=== PATIENT | male | born 1950 | race Caucasian/White ===

== ENCOUNTER 2022-06-23 21:42 | Inpatient (IN) | payer MEDICARE, MEDICAID ==
[~2022-06-23] VITALS: Ht 175.3 cm; Wt 89.2 kg
[2022-06-23] MEDS ORDERED: SODIUM CHLORIDE 0.9% 1,000 ML IV ONE (22:30)
[2022-06-23 22:52] LABS: BASOPHILS % 0.3 % (0.0-2.0); EOSINOPHILS % 1.7 % (0.0-5.0); HEMATOCRIT. 37.8 % (42.0-52.0); HEMOGLOBIN. 12.7 g/dL (14.0-18.0); LYMPHOCYTES % 12.1 % (20.0-50.0); MEAN CORPUSCULAR HEMOGLOBIN 33.5 pg (28.0-32.0); MEAN CORPUSCULAR VOLUME 99.8 fL (80.0-94.0); MEAN PLATELET VOLUME 7.8 fl (7.4-10.4); MONOCYTES % 11.1 % (2.0-8.0); NEUTROPHILS % 74.8 % (40.0-76.0); PLATELET 320 x1000/uL (130-400); RED BLOOD CELL COUNT 3.79 mill/uL (4.7-6.1); RED CELL DISTRIBUTION WIDTH 14.4 % (11.6-14.6)
[2022-06-23 23:00] LABS: CHLORIDE 101 mEq/L (98-107)
[2022-06-24] MEDS ORDERED: ONDANSETRON HCL 4MG/2ML INJ IV ONE (02:00)
[2022-06-24] MEDS ORDERED: LORAZEPAM 1MG TABLET PO ONE (02:00)
[2022-06-24] MEDS ORDERED: LOPERAMIDE HCL 2MG CAPSULE PO ONE (03:45)
[2022-06-24 06:50] LABS: CLARITY URINE CLEAR (CLEAR); COLOR URINE YELLOW (YELLOW); KETONES URINE NEGATIVE (NEGATIVE); LEUKOCYTE ESTERASE URINE NEGATIVE (NEGATIVE); NITRITE URINE NEGATIVE (NEGATIVE); OCCULT BLOOD URINE NEGATIVE (NEGATIVE); PH URINE 5.5 (4.5-8.0); PROTEIN URINE TRACE (NEGATIVE); SPECIFIC GRAVITY URINE 1.018 (1.005-1.030); UROBILINOGEN URINE 0.2 E.U./dL (0.2-1.0)
[2022-06-24] MEDS ORDERED: ONDANSETRON HCL 4MG/2ML INJ IV PRN (07:30)
[2022-06-24] MEDS ORDERED: ACETAMINOPHEN 325MG TABLET PO PRN (07:30)
[2022-06-24] MEDS ORDERED: TRAMADOL 50MG TABLET PO PRN (07:30)
[2022-06-24] MEDS ORDERED: GUAIFENESIN 200MG/10ML SUGAR FREE UDC PO PRN (07:30)
[2022-06-24] MEDS ORDERED: MAGNESIUM/ALUMINUM HYDROXIDE/SIMETHICONE 30ML UDC PO PRN (07:30)
[2022-06-24 09:00] VITALS: BP 107/70
[2022-06-24 09:30] VITALS: BP 127/66
[2022-06-24] MEDS: PANTOPRAZOLE SODIUM 40 MG/VIAL IV SCH (09:40)
[2022-06-24] MEDS: ENOXAPARIN 40MG/0.4ML SYR SUBCUT SCH (09:40)
[2022-06-24] MEDS ORDERED: DEXTROSE 50% WATER 50ML SYRINGE IV PRN (11:45)
[2022-06-24 12:00] VITALS: BP_SYST 107; BP_SYST 140; BP_DIAS 75; BP_DIAS 77
[2022-06-24] MEDS: SODIUM CHLORIDE 0.9% 1,000 ML IV SCH ×2 (12:21→20:50)
[2022-06-24] MEDS ORDERED: LOPERAMIDE HCL 2MG CAPSULE PO PRN (12:45)
[2022-06-24] MEDS: INSULIN LISPRO 100 UNITS/ML SUBCUT SCH ×3 (12:50→21:00)
[2022-06-24] MEDS: BLOOD SUGAR DIAGNOSTIC STRIP TEST SCH ×3 (12:54→21:00)
[2022-06-24] MEDS ORDERED: IPRATROPIUM/ALBUTEROL 0.5-3(2.5)MG/3ML NEB HHN PRN (13:00)
[2022-06-24] MEDS ORDERED: NALOXONE HCL 0.4MG/ML VIAL IV PRN (13:00)
[2022-06-24] MEDS: DIPHENHYDRAMINE HCL/ZINC ACET 28 GM CREAM TOP SCH (15:12)
[2022-06-24 16:00] VITALS: BP 126/78
[2022-06-24] MEDS: HYDROCODONE/APAP 7.5/325MG 1 TAB TABLET PO PRN ×2 (16:27→23:09)
[2022-06-24 20:00] VITALS: BP 147/78
[2022-06-25] VITALS: BP 147/78
[2022-06-25 00:02] VITALS: BP 146/84
[2022-06-25 04:00] VITALS: BP 133/74
[2022-06-25] MEDS: HYDROCODONE/APAP 7.5/325MG 1 TAB TABLET PO PRN ×2 (06:05→15:36)
[2022-06-25 06:52] LABS: BASOPHILS % 0.2 % (0.0-2.0); EOSINOPHILS % 4.9 % (0.0-5.0); HEMATOCRIT. 35.2 % (42.0-52.0); HEMOGLOBIN. 11.9 g/dL (14.0-18.0); LYMPHOCYTES % 22.4 % (20.0-50.0); MEAN CORPUSCULAR HEMOGLOBIN 34.1 pg (28.0-32.0); MEAN CORPUSCULAR VOLUME 100.5 fL (80.0-94.0); MEAN PLATELET VOLUME 7.9 fl (7.4-10.4); MONOCYTES % 13.7 % (2.0-8.0); NEUTROPHILS % 58.8 % (40.0-76.0); PLATELET 327 x1000/uL (130-400); RED CELL DISTRIBUTION WIDTH 14.1 % (11.6-14.6)
[2022-06-25 06:54] LABS: CHLORIDE 106 mEq/L (98-107)
[2022-06-25] MEDS: INSULIN LISPRO 100 UNITS/ML SUBCUT SCH ×2 (07:50→12:50)
[2022-06-25] MEDS: BLOOD SUGAR DIAGNOSTIC STRIP TEST SCH ×2 (07:58→13:12)
[2022-06-25 08:00] VITALS: BP_SYST 134; BP_SYST 153; BP_DIAS 87; BP_DIAS 93
[2022-06-25] MEDS: DIPHENHYDRAMINE HCL/ZINC ACET 28 GM CREAM TOP SCH (08:53)
[2022-06-25] MEDS: PANTOPRAZOLE SODIUM 40 MG/VIAL IV SCH (08:54)
[2022-06-25] MEDS: ENOXAPARIN 40MG/0.4ML SYR SUBCUT SCH (08:55)
[2022-06-25] MEDS: SODIUM CHLORIDE 0.9% 1,000 ML IV SCH (10:10)
[2022-06-25 12:00] VITALS: BP 134/93
[2022-06-25 15:40] VITALS: BP 139/93
== END 2022-06-25 16:10 | DRG 249 ==
LOC: ER 21:42 → 6EST 06-24 04:54 → ENRESERV 06-24 07:44
PROVIDERS: ADMIT Hospitalist; ATTEND Hospitalist
DX: K52.9 Noninfective gastroenteritis and colitis, unspecified (principal); E11.9 Type 2 diabetes mellitus without complications; E86.0 Dehydration; J44.9 Chronic obstructive pulmonary disease, unspecified; F32.A Depression, unspecified; I10 Essential (primary) hypertension; R79.89 Other specified abnormal findings of blood chemistry; G89.29 Other chronic pain; F17.210 Nicotine dependence, cigarettes, uncomplicated; Z82.49 Family history of ischemic heart disease and other diseases of the circulatory system; Z71.6 Tobacco abuse counseling
CPT/HCPCS: 36415; 71045; 74176; 80053; 81003; 82962; 83036; 83605; 85025; 93005; 99285; C1893; C9113; J1650; J2405; J7030

== ENCOUNTER 2022-08-21 09:31 | Inpatient (IN) | payer MEDICARE, MEDICAID ==
[~2022-08-21] VITALS: Ht 177.8 cm; Wt 90.7 kg
[2022-08-21] MEDS ORDERED: ONDANSETRON HCL 4MG/2ML INJ IV STA (10:13)
[2022-08-21] MEDS ORDERED: SODIUM CHLORIDE 0.9% 1,000 ML IV ONE ×2 (10:15→21:00)
[2022-08-21 12:13] LABS: BASOPHILS % 0.2 % (0.0-2.0); EOSINOPHILS % 2.3 % (0.0-5.0); HEMATOCRIT. 38.2 % (42.0-52.0); HEMOGLOBIN. 12.9 g/dL (14.0-18.0); LYMPHOCYTES % 7.9 % (20.0-50.0); MEAN CORPUSCULAR HEMOGLOBIN 33.7 pg (28.0-32.0); MEAN CORPUSCULAR VOLUME 100.2 fL (80.0-94.0); MONOCYTES % 7.8 % (2.0-8.0); NEUTROPHILS % 81.8 % (40.0-76.0); PLATELET 413 x1000/uL (130-400); RED BLOOD CELL COUNT 3.81 mill/uL (4.7-6.1); RED CELL DISTRIBUTION WIDTH 15.4 % (11.6-14.6)
[2022-08-21] MEDS ORDERED: IPRATROPIUM BROMIDE (0.02%) 0.5MG/2.5ML NEB HHN STA (12:31)
[2022-08-21] MEDS ORDERED: ALBUTEROL (0.083%) 2.5MG/3ML NEB HHN SCH (13:00)
[2022-08-21 13:14] LABS: CHLORIDE 95 mEq/L (98-107)
[2022-08-21 20:00] VITALS: BP 136/70
[2022-08-21] MEDS ORDERED: HYDROCODONE/ACETAMINOPHEN 5/325MG TABLET PO PRN (20:30)
[2022-08-21] MEDS ORDERED: IPRATROPIUM/ALBUTEROL 0.5-3(2.5)MG/3ML NEB HHN PRN (20:30)
[2022-08-21] MEDS ORDERED: MAGNESIUM/ALUMINUM HYDROXIDE/SIMETHICONE 30ML UDC PO PRN (20:30)
[2022-08-21] MEDS ORDERED: CLONIDINE 0.1MG TABLET PO PRN (20:30)
[2022-08-21] MEDS ORDERED: GUAIFENESIN 200MG/10ML SUGAR FREE UDC PO PRN (20:30)
[2022-08-21] MEDS ORDERED: ACETAMINOPHEN 325MG TABLET PO PRN ×2 (20:30)
[2022-08-21] MEDS ORDERED: ONDANSETRON HCL 4MG/2ML INJ IV PRN (20:30)
[2022-08-21] MEDS ORDERED: NALOXONE HCL 0.4MG/ML VIAL IV PRN (20:45)
[2022-08-21] MEDS ORDERED: DEXTROSE 50% WATER 50ML SYRINGE IV PRN (20:45)
[2022-08-21] MEDS: HYDROCODONE/ACETAMINOPHEN 7.5/325MG TABLET PO PRN (20:48)
[2022-08-21] MEDS: BLOOD SUGAR DIAGNOSTIC STRIP TEST SCH (21:00)
[2022-08-21] MEDS: INSULIN LISPRO 100 UNITS/ML SUBCUT SCH (21:00)
[2022-08-21] MEDS: ENOXAPARIN 40MG/0.4ML SYR SUBCUT SCH (21:48)
[2022-08-22] VITALS (7 sets, daily range): BP systolic 118–160; BP diastolic 60–95
[2022-08-22] MEDS: CALAMINE LOTION 120ML TOP SCH ×4 (05:43→22:00)
[2022-08-22 07:16] LABS: BASOPHILS % 0.1 % (0.0-2.0); EOSINOPHILS % 2.4 % (0.0-5.0); HEMATOCRIT. 30.8 % (42.0-52.0); HEMOGLOBIN. 10.5 g/dL (14.0-18.0); LYMPHOCYTES % 14.2 % (20.0-50.0); MEAN CORPUSCULAR HEMOGLOBIN 34.1 pg (28.0-32.0); MEAN PLATELET VOLUME 7.6 fl (7.4-10.4); MONOCYTES % 10.6 % (2.0-8.0); NEUTROPHILS % 72.7 % (40.0-76.0); PLATELET 341 x1000/uL (130-400); RED BLOOD CELL COUNT 3.08 mill/uL (4.7-6.1); RED CELL DISTRIBUTION WIDTH 15.4 % (11.6-14.6)
[2022-08-22] MEDS: INSULIN LISPRO 100 UNITS/ML SUBCUT SCH ×3 (07:50→21:00)
[2022-08-22] MEDS: BLOOD SUGAR DIAGNOSTIC STRIP TEST SCH ×3 (08:10→21:00)
[2022-08-22 08:29] LABS: VITAMIN B12 SERUM 624 pg/mL (211-911)
[2022-08-22] MEDS: IPRATROPIUM/ALBUTEROL 0.5-3(2.5)MG/3ML NEB HHN SCH ×3 (08:36→21:30)
[2022-08-22 09:23] LABS: CHLORIDE 101 mEq/L (98-107)
[2022-08-22] MEDS: PANTOPRAZOLE SODIUM 40 MG/VIAL IV SCH (09:24)
[2022-08-22] MEDS: HYDROCODONE/ACETAMINOPHEN 7.5/325MG TABLET PO PRN (09:25)
[2022-08-22] MEDS ORDERED: MORPHINE SULFATE 2 MG/ML CPJ (NOT FOR IM USE) IV PRN (09:30)
[2022-08-22 09:48] LABS: PHOSPHORUS 2.8 mg/dL (2.5-4.9); T4 FREE 1.04 ng/dL (0.76-1.46)
[2022-08-22 10:04] LABS: FOLIC ACID (FOLATE) SERUM > 20.00 ng/mL (>5.38)
[2022-08-22] MEDS: DIPHENHYDRAMINE 50MG/ML VIAL IV PRN (15:41)
[2022-08-22] MEDS ORDERED: MAGNESIUM 2 G PREMIX 50 ML IV NR (16:00)
[2022-08-22] MEDS ORDERED: PERMETHRIN 5% CREAM 60GM TOP NR (18:00)
[2022-08-22] MEDS ORDERED: DEXTROSE 50% WATER 50ML SYRINGE IV PRN (18:30)
[2022-08-22] MEDS: HYDROCODONE/ACETAMINOPHEN 5/325MG TABLET PO PRN (19:34)
[2022-08-22] MEDS: ENOXAPARIN 40MG/0.4ML SYR SUBCUT SCH (20:35)
[2022-08-23] VITALS: BP 156/72
[2022-08-23] MEDS: HYDROCODONE/ACETAMINOPHEN 5/325MG TABLET PO PRN ×3 (02:03→19:51)
[2022-08-23 04:00] VITALS: BP 144/86
[2022-08-23] MEDS: PANTOPRAZOLE SODIUM 40 MG/VIAL IV SCH (07:20)
[2022-08-23] MEDS: IPRATROPIUM/ALBUTEROL 0.5-3(2.5)MG/3ML NEB HHN SCH ×2 (07:30→21:29)
[2022-08-23] MEDS: INSULIN LISPRO 100 UNITS/ML SUBCUT SCH ×4 (07:50→20:36)
[2022-08-23 08:00] VITALS: BP 172/83
[2022-08-23] MEDS: BLOOD SUGAR DIAGNOSTIC STRIP TEST SCH ×4 (08:18→20:36)
[2022-08-23 12:00] VITALS: BP 163/73
[2022-08-23] MEDS: PANTOPRAZOLE 40MG DR TABLET PO SCH (12:37)
[2022-08-23] MEDS: CALAMINE LOTION 120ML TOP SCH ×3 (12:38→20:37)
[2022-08-23 16:00] VITALS: BP 134/74
[2022-08-23] MEDS: DIPHENHYDRAMINE 50MG/ML VIAL IV PRN (18:14)
[2022-08-23 20:00] VITALS: BP 130/80
[2022-08-23] MEDS ORDERED: PERMETHRIN 5% CREAM 60GM TOP NR (20:00)
[2022-08-23] MEDS: ENOXAPARIN 40MG/0.4ML SYR SUBCUT SCH (20:37)
[2022-08-23] MEDS ORDERED: LORAZEPAM 0.5MG TABLET PO NR (22:30)
[2022-08-24] VITALS: BP 130/80
[2022-08-24] MEDS: IPRATROPIUM/ALBUTEROL 0.5-3(2.5)MG/3ML NEB HHN SCH (01:07)
[2022-08-24 04:00] VITALS: BP 120/82
[2022-08-24] MEDS: BLOOD SUGAR DIAGNOSTIC STRIP TEST SCH ×2 (06:20→12:06)
[2022-08-24] MEDS: CALAMINE LOTION 120ML TOP SCH ×2 (06:20→14:30)
[2022-08-24] MEDS: PANTOPRAZOLE 40MG DR TABLET PO SCH (06:20)
[2022-08-24] MEDS: INSULIN LISPRO 100 UNITS/ML SUBCUT SCH ×2 (07:50→12:50)
[2022-08-24 08:00] VITALS: BP 103/60
[2022-08-24] MEDS: HYDROCODONE/ACETAMINOPHEN 5/325MG TABLET PO PRN (11:28)
[2022-08-24 12:00] VITALS: BP 113/80
[2022-08-24 15:08] LABS: BASOPHILS % 0.2 % (0.0-2.0); EOSINOPHILS % 3.5 % (0.0-5.0); HEMATOCRIT. 34.2 % (42.0-52.0); HEMOGLOBIN. 11.6 g/dL (14.0-18.0); LYMPHOCYTES % 19.2 % (20.0-50.0); MEAN CORPUSCULAR VOLUME 99.9 fL (80.0-94.0); MEAN PLATELET VOLUME 7.6 fl (7.4-10.4); MONOCYTES % 11.1 % (2.0-8.0); PLATELET 359 x1000/uL (130-400); RED BLOOD CELL COUNT 3.43 mill/uL (4.7-6.1); RED CELL DISTRIBUTION WIDTH 15.2 % (11.6-14.6)
[2022-08-24] MEDS ORDERED: LORAZEPAM 0.5MG TABLET PO NR (16:00)
[2022-08-24 16:45] VITALS: BP 90/56
[2022-08-24 17:19] LABS: CHLORIDE 99 mEq/L (98-107)
== END 2022-08-24 17:45 | DRG 392 ==
LOC: ER 10:13 → 6EST 15:42 → EDBEDREQ 15:45 → EDBEDREQTM 15:45 → ENRESERV 16:16 → CANRESERV 16:16 → ENRESERV 16:51
PROVIDERS: ADMIT Internal Medicine; ATTEND Internal Medicine
DX: A08.4 Viral intestinal infection, unspecified (principal); J06.9 Acute upper respiratory infection, unspecified; E86.0 Dehydration; E11.9 Type 2 diabetes mellitus without complications; J44.9 Chronic obstructive pulmonary disease, unspecified; K21.9 Gastro-esophageal reflux disease without esophagitis; E78.00 Pure hypercholesterolemia, unspecified; E78.5 Hyperlipidemia, unspecified; D75.89 Other specified diseases of blood and blood-forming organs; F32.A Depression, unspecified; F41.9 Anxiety disorder, unspecified; D53.9 Nutritional anemia, unspecified; B86 Scabies; E80.6 Other disorders of bilirubin metabolism; Z87.891 Personal history of nicotine dependence; Z99.81 Dependence on supplemental oxygen; Z91.012 Allergy to eggs
CPT/HCPCS: 36415; 71045; 80048; 80053; 82607; 82746; 82962; 83036; 83735; 83880; 84100; 84145; 84439; 84443; 84484; 85025; 88305; 94640; 99285; C9113; J1200; J1650; J2405; J3475; J7030

== ENCOUNTER 2022-10-01 16:37 | Inpatient (IN) | payer MEDICARE, MEDICAID ==
[~2022-10-01] VITALS: Ht 167.6 cm; Wt 78.5 kg
[2022-10-01] MEDS ORDERED: METHYLPREDNISOLONE SOD SUCC 125 MG/2 ML VIAL IV STA (17:39)
[2022-10-01] MEDS ORDERED: ALBUTEROL (0.083%) 2.5MG/3ML NEB HHN STA (17:39)
[2022-10-01] MEDS ORDERED: IPRATROPIUM BROMIDE (0.02%) 0.5MG/2.5ML NEB HHN STA (17:39)
[2022-10-01] MEDS ORDERED: SODIUM CHLORIDE 0.9% 1000ML BAG (SEPSIS BOLUS) IV ONE (17:45)
[2022-10-01] MEDS ORDERED: VANCOMYCIN 1G PREMIX 200 ML IV ONE (17:45)
[2022-10-01] MEDS ORDERED: OSELTAMIVIR 75MG CAPSULE PO ONE (17:45)
[2022-10-01] MEDS ORDERED: PIPERACILLIN/TAZ 3.375G PREMIX 50 ML IV ONE (17:45)
[2022-10-01 18:13] LABS: CLARITY URINE CLEAR (CLEAR); COLOR URINE YELLOW (YELLOW); KETONES URINE NEGATIVE (NEGATIVE); LEUKOCYTE ESTERASE URINE NEGATIVE (NEGATIVE); NITRITE URINE NEGATIVE (NEGATIVE); OCCULT BLOOD URINE NEGATIVE (NEGATIVE); PH URINE 8.5 (4.5-8.0); PROTEIN URINE 2+ (NEGATIVE); SPECIFIC GRAVITY URINE 1.015 (1.005-1.030)
[2022-10-01 18:51] LABS: BASOPHILS % 0.4 % (0.0-2.0); EOSINOPHILS % 1.5 % (0.0-5.0); HEMATOCRIT. 32.4 % (42.0-52.0); HEMOGLOBIN. 10.7 g/dL (14.0-18.0); LYMPHOCYTES % 12.3 % (20.0-50.0); MEAN CORPUSCULAR HEMOGLOBIN 33.8 pg (28.0-32.0); MEAN CORPUSCULAR VOLUME 102.7 fL (80.0-94.0); MONOCYTES % 7.2 % (2.0-8.0); NEUTROPHILS % 78.6 % (40.0-76.0); PLATELET 465 x1000/uL (130-400); RED BLOOD CELL COUNT 3.16 mill/uL (4.7-6.1); RED CELL DISTRIBUTION WIDTH 15.1 % (11.6-14.6)
[2022-10-01 18:55] LABS: CHLORIDE 88 mEq/L (98-107)
[2022-10-01 19:05] LABS: PROTHROMBIN TIME 10.8 sec (9.6-11.0)
[2022-10-02] VITALS (8 sets, daily range): BP systolic 138–182; BP diastolic 71–94
[2022-10-02] MEDS ORDERED: QUETIAPINE FUMARATE 25MG TABLET PO NR (00:30)
[2022-10-02] MEDS ORDERED: DOCUSATE SODIUM 100MG CAPSULE PO PRN (07:45)
[2022-10-02] MEDS ORDERED: GUAIFENESIN 200MG/10ML SUGAR FREE UDC PO PRN (07:45)
[2022-10-02] MEDS ORDERED: MAGNESIUM/ALUMINUM HYDROXIDE/SIMETHICONE 30ML UDC PO PRN (07:45)
[2022-10-02] MEDS ORDERED: IPRATROPIUM/ALBUTEROL 0.5-3(2.5)MG/3ML NEB HHN SCH (07:45)
[2022-10-02] MEDS ORDERED: CLONIDINE 0.1MG TABLET PO PRN (07:45)
[2022-10-02] MEDS ORDERED: ONDANSETRON HCL 4MG/2ML INJ IV PRN (07:45)
[2022-10-02] MEDS ORDERED: ACETAMINOPHEN 325MG TABLET PO PRN (07:45)
[2022-10-02 08:23] LABS: BG BASE EXCESS 19.3 mmol/L (-2.0-2.0); BG CARBOXYHEMOGLOBIN 0.4 % (0.5-1.5); BG DEOXYHEMOGLOBIN 1.8 % (0.0-5.0); BG FRACTION INSPIRED OXYGEN 36; BG HCO3 ACT 47.8 mmol/L (22.0-26.0); BG METHEMOGLOBIN 0.2 % (0.0-1.5); BG OXYGEN SATURATION 98.2 % (92.0-98.5); BG OXYHEMOGLOBIN 97.6 % (94.0-97.0); BG PCO2 82.7 mmHg (35.0-45.0); BG PO2 110.3 mmHg (75.0-100.0); BG SAMPLE SITE LEFT RADIAL; BG TOTAL HEMOGLOBIN 10.3 g/dL (12.0-18.0); BG VENT MODE NASAL CANNULA
[2022-10-02] MEDS ORDERED: PIPERACILLIN/TAZ 3.375G PREMIX 50 ML IV SCH (09:00)
[2022-10-02] MEDS ORDERED: AZITHROMYCIN 500MG/250ML 250 ML IV SCH (09:00)
[2022-10-02] MEDS: METHYLPREDNISOLONE SOD SUCC 125 MG/2 ML VIAL IV SCH ×2 (09:48→18:53)
[2022-10-02] MEDS: ASPIRIN 81MG EC TABLET PO SCH (09:49)
[2022-10-02] MEDS: AMLODIPINE 10MG TABLET PO SCH (09:49)
[2022-10-02] MEDS: AZITHROMYCIN 500MG in DEXTROSE 5% WATER 250ML IV SCH (10:38)
[2022-10-02] MEDS: ENOXAPARIN 40MG/0.4ML SYR SUBCUT SCH (10:38)
[2022-10-02] MEDS ORDERED: NALOXONE HCL 0.4 MG/ML 1ML VIAL IV PRN (10:45)
[2022-10-02] MEDS: DIPHENHYDRAMINE 50MG/ML VIAL IV PRN (11:36)
[2022-10-02] MEDS ORDERED: IPRATROPIUM/ALBUTEROL 0.5-3(2.5)MG/3ML NEB HHN PRN (12:30)
[2022-10-02] MEDS: PIPERACILLIN/TAZOBACTAM 3.375G in DEXT 5% WATER 50ML IV SCH ×2 (13:08→21:26)
[2022-10-02] MEDS: HYDROCODONE/ACETAMINOPHEN 5/325MG TABLET PO PRN (13:09)
[2022-10-02] MEDS: IPRATROPIUM/ALBUTEROL 0.5-3(2.5)MG/3ML NEB HHN SCH ×2 (16:05→21:02)
[2022-10-02 17:52] LABS: BASOPHILS % 0.3 % (0.0-2.0); HEMATOCRIT. 30.9 % (42.0-52.0); HEMOGLOBIN. 10.2 g/dL (14.0-18.0); LYMPHOCYTES % 8.1 % (20.0-50.0); MEAN CORPUSCULAR HEMOGLOBIN 33.6 pg (28.0-32.0); MEAN CORPUSCULAR VOLUME 101.7 fL (80.0-94.0); MEAN PLATELET VOLUME 7.6 fl (7.4-10.4); MONOCYTES % 4.3 % (2.0-8.0); NEUTROPHILS % 87.3 % (40.0-76.0); PLATELET 417 x1000/uL (130-400); RED BLOOD CELL COUNT 3.04 mill/uL (4.7-6.1); RED CELL DISTRIBUTION WIDTH 15.7 % (11.6-14.6)
[2022-10-02 18:34] LABS: CHLORIDE 93 mEq/L (98-107)
[2022-10-02 18:38] LABS: CREATINE KINASE MB FRACTION 1.8 ng/mL (0.5-3.6)
[2022-10-02 18:50] LABS: HDL CHOLESTEROL 41 mg/dL (40-59); LDL CHOLESTEROL 111 mg/dL (5-100); T4 FREE 0.92 ng/dL (0.76-1.46)
[2022-10-02 21:18] LABS: BG BASE EXCESS 18.2 mmol/L (-2.0-2.0); BG CARBOXYHEMOGLOBIN 0.3 % (0.5-1.5); BG DEOXYHEMOGLOBIN 9.5 % (0.0-5.0); BG FRACTION INSPIRED OXYGEN 28; BG HCO3 ACT 45.1 mmol/L (22.0-26.0); BG METHEMOGLOBIN 0.1 % (0.0-1.5); BG OXYGEN SATURATION 90.5 % (92.0-98.5); BG OXYHEMOGLOBIN 90.1 % (94.0-97.0); BG PCO2 66.9 mmHg (35.0-45.0); BG PH 7.447 (7.350-7.450); BG PO2 56.8 mmHg (75.0-100.0); BG SAMPLE SITE RIGHT RADIAL; BG TOTAL HEMOGLOBIN 10.7 g/dL (12.0-18.0); BG VENT MODE NASAL CANNULA
[2022-10-02] MEDS: FAMOTIDINE 20MG TABLET PO SCH (21:26)
[2022-10-03] VITALS (11 sets, daily range): BP systolic 138–154; BP diastolic 65–79
[2022-10-03] MEDS: METHYLPREDNISOLONE SOD SUCC 125 MG/2 ML VIAL IV SCH ×5 (00:08→23:15)
[2022-10-03] MEDS: IPRATROPIUM/ALBUTEROL 0.5-3(2.5)MG/3ML NEB HHN SCH ×6 (00:29→21:05)
[2022-10-03] MEDS: ACETAMINOPHEN 325MG TABLET PO PRN (05:40)
[2022-10-03] MEDS: PIPERACILLIN/TAZOBACTAM 3.375G in DEXT 5% WATER 50ML IV SCH ×3 (05:48→21:02)
[2022-10-03 08:53] LABS: BG BASE EXCESS 13.1 mmol/L (-2.0-2.0); BG CARBOXYHEMOGLOBIN 0.1 % (0.5-1.5); BG DEOXYHEMOGLOBIN 10.4 % (0.0-5.0); BG FRACTION INSPIRED OXYGEN 28; BG HCO3 ACT 38.4 mmol/L (22.0-26.0); BG METHEMOGLOBIN 0.3 % (0.0-1.5); BG OXYGEN SATURATION 89.6 % (92.0-98.5); BG OXYHEMOGLOBIN 89.2 % (94.0-97.0); BG PH 7.478 (7.350-7.450); BG PO2 54.1 mmHg (75.0-100.0); BG SAMPLE SITE RIGHT RADIAL; BG TOTAL HEMOGLOBIN 10.3 g/dL (12.0-18.0); BG VENT MODE NASAL CANNULA
[2022-10-03] MEDS ORDERED: LIDOCAINE HCL 1% 10 MG/ML 10ML VIAL ONE ×2 (09:02→10:17)
[2022-10-03] MEDS: ASPIRIN 81MG EC TABLET PO SCH (09:13)
[2022-10-03] MEDS: BUSPIRONE HCL 5MG TABLET PO SCH ×2 (09:13→20:37)
[2022-10-03] MEDS: ENOXAPARIN 40MG/0.4ML SYR SUBCUT SCH (09:13)
[2022-10-03] MEDS: FLUOXETINE HCL 10 MG CAPSULE PO SCH (09:13)
[2022-10-03] MEDS: AMLODIPINE 10MG TABLET PO SCH (09:16)
[2022-10-03] MEDS: AZITHROMYCIN 500MG in DEXTROSE 5% WATER 250ML IV SCH (11:57)
[2022-10-03 16:14] LABS: HEMATOCRIT. 30.4 % (42.0-52.0); HEMOGLOBIN. 10.2 g/dL (14.0-18.0); MEAN CORPUSCULAR HEMOGLOBIN 33.7 pg (28.0-32.0); MEAN CORPUSCULAR VOLUME 100.8 fL (80.0-94.0); MEAN PLATELET VOLUME 7.1 fl (7.4-10.4); PLATELET 475 x1000/uL (130-400); RED BLOOD CELL COUNT 3.01 mill/uL (4.7-6.1); RED CELL DISTRIBUTION WIDTH 15.4 % (11.6-14.6)
[2022-10-03 16:26] LABS: CHLORIDE 92 mEq/L (98-107)
[2022-10-03 16:36] LABS: CREATINE KINASE 29 IU/L (39-308); CREATINE KINASE MB FRACTION 1.1 ng/mL (0.5-3.6)
[2022-10-03 17:40] LABS: PLATELET ESTIMATE INCREASED
[2022-10-03] MEDS: HYDROCODONE/ACETAMINOPHEN 5/325MG TABLET PO PRN (18:03)
[2022-10-03] MEDS: FAMOTIDINE 20MG TABLET PO SCH (20:37)
[2022-10-04] VITALS (11 sets, daily range): BP systolic 134–159; BP diastolic 60–89
[2022-10-04] MEDS: IPRATROPIUM/ALBUTEROL 0.5-3(2.5)MG/3ML NEB HHN SCH ×6 (00:30→21:14)
[2022-10-04] MEDS: METHYLPREDNISOLONE SOD SUCC 125 MG/2 ML VIAL IV SCH ×2 (05:05→12:10)
[2022-10-04] MEDS: PIPERACILLIN/TAZOBACTAM 3.375G in DEXT 5% WATER 50ML IV SCH ×3 (05:05→21:01)
[2022-10-04] MEDS: AZITHROMYCIN 500 MG TABLET PO SCH (09:00)
[2022-10-04] MEDS: ASPIRIN 81MG EC TABLET PO SCH (09:00)
[2022-10-04] MEDS: FLUOXETINE HCL 10 MG CAPSULE PO SCH (09:00)
[2022-10-04] MEDS: HYDROCODONE/ACETAMINOPHEN 5/325MG TABLET PO PRN ×2 (09:00→15:38)
[2022-10-04] MEDS: AMLODIPINE 10MG TABLET PO SCH (09:00)
[2022-10-04] MEDS: BUSPIRONE HCL 5MG TABLET PO SCH (09:00)
[2022-10-04] MEDS: ENOXAPARIN 40MG/0.4ML SYR SUBCUT SCH (09:01)
[2022-10-04] MEDS: DIPHENHYDRAMINE 50MG/ML VIAL IV PRN (20:57)
[2022-10-04] MEDS: BUSPIRONE HCL 10MG TABLET PO SCH (20:57)
[2022-10-04] MEDS: METHYLPREDNISOLONE SOD SUCC 40 MG/ML VIAL IV SCH (20:57)
[2022-10-04] MEDS: FAMOTIDINE 20MG TABLET PO SCH (20:57)
[2022-10-04] MEDS: ATORVASTATIN CALCIUM 40MG TABLET PO SCH (20:57)
[2022-10-04] MEDS ORDERED: HALOPERIDOL LACTATE 5MG/ML VIAL IM SCH (22:30)
[2022-10-05] VITALS (10 sets, daily range): BP systolic 97–155; BP diastolic 54–115
[2022-10-05] MEDS: IPRATROPIUM/ALBUTEROL 0.5-3(2.5)MG/3ML NEB HHN SCH ×7 (00:53→23:51)
[2022-10-05] MEDS: PIPERACILLIN/TAZOBACTAM 3.375G in DEXT 5% WATER 50ML IV SCH ×3 (05:11→22:22)
[2022-10-05] MEDS: DIPHENHYDRAMINE 50MG/ML VIAL IV PRN ×2 (05:12→20:10)
[2022-10-05] MEDS: BUSPIRONE HCL 10MG TABLET PO SCH ×2 (09:00→20:10)
[2022-10-05] MEDS: AZITHROMYCIN 500 MG TABLET PO SCH (09:00)
[2022-10-05] MEDS: ASPIRIN 81MG EC TABLET PO SCH (09:00)
[2022-10-05] MEDS: AMLODIPINE 10MG TABLET PO SCH (09:00)
[2022-10-05] MEDS: FLUOXETINE HCL 10 MG CAPSULE PO SCH (09:00)
[2022-10-05] MEDS: METHYLPREDNISOLONE SOD SUCC 40 MG/ML VIAL IV SCH ×2 (09:00→20:10)
[2022-10-05] MEDS: ENOXAPARIN 40MG/0.4ML SYR SUBCUT SCH (09:01)
[2022-10-05 09:14] LABS: BG BASE EXCESS 15.9 mmol/L (-2.0-2.0); BG CARBOXYHEMOGLOBIN 0.3 % (0.5-1.5); BG DEOXYHEMOGLOBIN 4.6 % (0.0-5.0); BG FRACTION INSPIRED OXYGEN 40; BG HCO3 ACT 43.1 mmol/L (22.0-26.0); BG METHEMOGLOBIN 0.3 % (0.0-1.5); BG OXYGEN SATURATION 95.4 % (92.0-98.5); BG OXYHEMOGLOBIN 94.8 % (94.0-97.0); BG PCO2 68.6 mmHg (35.0-45.0); BG PH 7.416 (7.350-7.450); BG PO2 81.9 mmHg (75.0-100.0); BG SAMPLE SITE RIGHT RADIAL; BG TOTAL HEMOGLOBIN 10.5 g/dL (12.0-18.0); BG VENT MODE NASAL CANNULA
[2022-10-05] MEDS: HYDROCODONE/ACETAMINOPHEN 5/325MG TABLET PO PRN ×2 (09:15→20:10)
[2022-10-05] MEDS: ATORVASTATIN CALCIUM 40MG TABLET PO SCH (20:10)
[2022-10-05] MEDS: FAMOTIDINE 20MG TABLET PO SCH (20:10)
[2022-10-06] VITALS (12 sets, daily range): BP systolic 116–165; BP diastolic 52–91
[2022-10-06] MEDS: IPRATROPIUM/ALBUTEROL 0.5-3(2.5)MG/3ML NEB HHN SCH ×5 (03:59→21:06)
[2022-10-06] MEDS: PIPERACILLIN/TAZOBACTAM 3.375G in DEXT 5% WATER 50ML IV SCH ×3 (06:02→20:26)
[2022-10-06] MEDS: AZITHROMYCIN 500 MG TABLET PO SCH (08:14)
[2022-10-06] MEDS: AMLODIPINE 10MG TABLET PO SCH (08:14)
[2022-10-06] MEDS: BUSPIRONE HCL 10MG TABLET PO SCH ×2 (08:14→20:25)
[2022-10-06] MEDS: ASPIRIN 81MG EC TABLET PO SCH (08:14)
[2022-10-06] MEDS: FLUOXETINE HCL 10 MG CAPSULE PO SCH (08:14)
[2022-10-06] MEDS: METHYLPREDNISOLONE SOD SUCC 40 MG/ML VIAL IV SCH ×2 (08:15→20:25)
[2022-10-06] MEDS: ENOXAPARIN 40MG/0.4ML SYR SUBCUT SCH (08:15)
[2022-10-06 08:58] LABS: HEMATOCRIT. 30.9 % (42.0-52.0); HEMOGLOBIN. 10.4 g/dL (14.0-18.0); MEAN CORPUSCULAR HEMOGLOBIN 34.1 pg (28.0-32.0); MEAN CORPUSCULAR VOLUME 101.3 fL (80.0-94.0); MEAN PLATELET VOLUME 7.3 fl (7.4-10.4); PLATELET 463 x1000/uL (130-400); RED BLOOD CELL COUNT 3.05 mill/uL (4.7-6.1); RED CELL DISTRIBUTION WIDTH 15.5 % (11.6-14.6)
[2022-10-06 09:20] LABS: CHLORIDE 98 mEq/L (98-107)
[2022-10-06] MEDS: ACETAMINOPHEN 325MG TABLET PO PRN (13:03)
[2022-10-06 17:37] LABS: PLATELET ESTIMATE INCREASED
[2022-10-06] MEDS: HYDROCODONE/ACETAMINOPHEN 5/325MG TABLET PO PRN (18:25)
[2022-10-06] MEDS: FAMOTIDINE 20MG TABLET PO SCH (20:25)
[2022-10-06] MEDS: ATORVASTATIN CALCIUM 40MG TABLET PO SCH (20:25)
[2022-10-07] VITALS (13 sets, daily range): BP systolic 117–159; BP diastolic 57–85
[2022-10-07] MEDS: IPRATROPIUM/ALBUTEROL 0.5-3(2.5)MG/3ML NEB HHN SCH ×6 (00:34→21:08)
[2022-10-07] MEDS: PIPERACILLIN/TAZOBACTAM 3.375G in DEXT 5% WATER 50ML IV SCH (05:14)
[2022-10-07] MEDS: METHYLPREDNISOLONE SOD SUCC 40 MG/ML VIAL IV SCH (08:35)
[2022-10-07] MEDS: FLUOXETINE HCL 20MG CAPSULE PO SCH (08:35)
[2022-10-07] MEDS: BUSPIRONE HCL 10MG TABLET PO SCH ×2 (08:35→20:51)
[2022-10-07] MEDS: AMLODIPINE 10MG TABLET PO SCH (08:35)
[2022-10-07] MEDS: ASPIRIN 81MG EC TABLET PO SCH (08:35)
[2022-10-07] MEDS: ENOXAPARIN 40MG/0.4ML SYR SUBCUT SCH (08:36)
[2022-10-07] MEDS: HYDROCODONE/ACETAMINOPHEN 5/325MG TABLET PO PRN ×2 (08:39→17:35)
[2022-10-07] MEDS ORDERED: AMLO10TA80 PO (15:40)
[2022-10-07] MEDS ORDERED: BUSP10TA4 PO (15:40)
[2022-10-07] MEDS ORDERED: P20 MT (15:40)
[2022-10-07] MEDS ORDERED: FLUO20CA39 PO (15:40)
[2022-10-07] MEDS ORDERED: ASPI-1406 PO (15:40)
[2022-10-07] MEDS ORDERED: LIP40 PO (15:40)
[2022-10-07] MEDS ORDERED: NALOXONE HCL 0.4MG/ML VIAL IV PRN (17:30)
[2022-10-07] MEDS: FAMOTIDINE 20MG TABLET PO SCH (20:51)
[2022-10-07] MEDS: ATORVASTATIN CALCIUM 40MG TABLET PO SCH (20:51)
[2022-10-07] MEDS: DIPHENHYDRAMINE 50MG/ML VIAL IV PRN (20:58)
[2022-10-08] VITALS (8 sets, daily range): BP systolic 116–144; BP diastolic 51–81
[2022-10-08] MEDS: IPRATROPIUM/ALBUTEROL 0.5-3(2.5)MG/3ML NEB HHN SCH ×4 (01:09→12:00)
[2022-10-08] MEDS ORDERED: METHYLPREDNISOLONE SOD SUCC 40 MG/ML VIAL IV SCH (09:00)
[2022-10-08] MEDS: BUSPIRONE HCL 10MG TABLET PO SCH (09:10)
[2022-10-08] MEDS: ASPIRIN 81MG EC TABLET PO SCH (09:10)
[2022-10-08] MEDS: AMLODIPINE 10MG TABLET PO SCH (09:10)
[2022-10-08] MEDS: ENOXAPARIN 40MG/0.4ML SYR SUBCUT SCH (09:11)
[2022-10-08] MEDS: FLUOXETINE HCL 20MG CAPSULE PO SCH (09:13)
[2022-10-08] MEDS: HYDROCODONE/ACETAMINOPHEN 5/325MG TABLET PO PRN (14:39)
[2022-10-08] MEDS ORDERED: LORAZEPAM 0.5MG TABLET PO NR (15:15)
== END 2022-10-08 16:30 | DRG 177 ==
LOC: ER 16:37 → 5EST 19:51 → EDBEDREQTM 19:54 → EDBEDREQ 19:54 → EDBEDREQTM 19:58
PROVIDERS: ADMIT Internal Medicine; ATTEND Internal Medicine
PROC: 5A09357 Assistance with Respiratory Ventilation, Less than 24 Consecutive Hours, Continuous Positive Airway Pressure (ICD-10-PCS; principal; 2022-10-05)
DX: J69.0 Pneumonitis due to inhalation of food and vomit (principal); J96.01 Acute respiratory failure with hypoxia; J96.02 Acute respiratory failure with hypercapnia; J44.1 Chronic obstructive pulmonary disease with (acute) exacerbation; E44.1 Mild protein-calorie malnutrition; E87.29 Other acidosis; F33.1 Major depressive disorder, recurrent, moderate; I50.20 Unspecified systolic (congestive) heart failure; I24.8 Other forms of acute ischemic heart disease; J44.0 Chronic obstructive pulmonary disease with (acute) lower respiratory infection; Z20.822 Contact with and (suspected) exposure to COVID-19; E78.5 Hyperlipidemia, unspecified; D72.829 Elevated white blood cell count, unspecified; E11.9 Type 2 diabetes mellitus without complications; I11.0 Hypertensive heart disease with heart failure; F41.1 Generalized anxiety disorder; E78.00 Pure hypercholesterolemia, unspecified; K21.9 Gastro-esophageal reflux disease without esophagitis; D75.89 Other specified diseases of blood and blood-forming organs; F17.210 Nicotine dependence, cigarettes, uncomplicated; Z91.012 Allergy to eggs; Z79.899 Other long term (current) drug therapy
CPT/HCPCS: 36415; 36573; 36600; 71045; 80053; 80061; 81003; 82375; 82550; 82553; 82805; 83036; 83605; 83880; 84145; 84439; 84443; 84484; 85025; 85379; 87426; 87804; 93005; 93306; 93970; 94640; 97162; 97166; 99291; C1725; C1892; C9803; J0456; J1200; J1630; J1650; J2405; J2543; J2920; J2930; J3370; J3490; J7030; J7060